=== PATIENT | female | born 1955 | race Caucasian/White ===

== ENCOUNTER 2017-03-02 21:57 | Inpatient (IN) | payer BC, MEDICAID, OTHER, SELFPAY ==
[~2017-03-02] VITALS: Ht 160 cm; Wt 96.7 kg
[2017-03-02 22:59] LABS: ASPARTATE AMINO TRANSFERASE 23 U/L (15-37); BLOOD UREA NITROGEN 19 mg/dL (7-18)
[2017-03-02 23:04] LABS: IS PT STATUS REG ER OR PRE ER? YES
[2017-03-02] MEDS ORDERED: GLIM2TAB2 PO (23:16)
[2017-03-02] MEDS ORDERED: LOSA100T6 PO (23:16)
[2017-03-02] MEDS ORDERED: SAXA5TAB PO (23:16)
[2017-03-02] MEDS ORDERED: CARV-39 PO (23:16)
[2017-03-02] MEDS ORDERED: ASPI-496 PO (23:16)
[2017-03-02] MEDS ORDERED: CHOL10002 PO (23:16)
[2017-03-02] MEDS ORDERED: DEXL60CA PO (23:16)
[2017-03-02] MEDS ORDERED: METF500T4 PO (23:16)
[2017-03-03] MEDS ORDERED: SODIUM CHLORIDE 0.9% 1,000 ML IV ONE (00:18)
[2017-03-03] MEDS ORDERED: ONDANSETRON 2MG/ML, 2ML IVPush PRN (00:30)
[2017-03-03 02:00] VITALS: BP 130/82
[2017-03-03] MEDS: ENOXAPARIN 40 MG/0.4 ML SQ SCH (04:00)
[2017-03-03] MEDS ORDERED: LORazepam 1MG TABLET PO ONE (04:00)
[2017-03-03] MEDS ORDERED: MELATONIN 3 MG TABLET PO PRN (04:00)
[2017-03-03 07:33] VITALS: BP 180/113
[2017-03-03] MEDS: LOSARTAN 50MG TABLET PO SCH (08:52)
[2017-03-03] MEDS: CARVEDILOL 25 MG TABLET PO SCH ×2 (08:53→20:01)
[2017-03-03] MEDS: GLIMEPIRIDE 1 MG TABLET PO SCH (08:53)
[2017-03-03] MEDS: CHOLECALCIFEROL 1,000 UNIT TABLET PO SCH ×3 (08:53→20:01)
[2017-03-03] MEDS: ASPIRIN 81 MG TABLET EC PO SCH (08:53)
[2017-03-03 13:05] VITALS: BP 154/55
[2017-03-03] MEDS ORDERED: GADOBUTROL 7.5 MMOL/7.5 ML PFS ONE (13:51)
[2017-03-03 19:59] VITALS: BP 174/84
[2017-03-03] MEDS ORDERED: ATORVASTATIN 40 MG TABLET PO SCH (21:00)
[2017-03-03 21:19] VITALS: BP 162/83
[2017-03-04 03:03] VITALS: BP 128/74
[2017-03-04] MEDS: ENOXAPARIN 40 MG/0.4 ML SQ SCH (04:00)
[2017-03-04 05:33] LABS: BLOOD UREA NITROGEN 20 mg/dL (7-18)
[2017-03-04 07:41] VITALS: BP 120/62
[2017-03-04] MEDS: LOSARTAN 50MG TABLET PO SCH (09:00)
[2017-03-04] MEDS: ASPIRIN 81 MG TABLET EC PO SCH (09:00)
[2017-03-04] MEDS: CHOLECALCIFEROL 1,000 UNIT TABLET PO SCH (09:00)
[2017-03-04] MEDS: CARVEDILOL 25 MG TABLET PO SCH (09:00)
[2017-03-04] MEDS: GLIMEPIRIDE 1 MG TABLET PO SCH (09:00)
[2017-03-04] MEDS ORDERED: ATOR40TA78 PO (10:10)
== END 2017-03-04 13:30 | disposition home or self-care (01) | DRG 69 ==
LOC: ED 23:59 → EDIP 03-03 00:18 → INTOOBSV 03-03 00:18 → 4EST 03-03 01:23 → OBSVTOIN 03-03 14:00 → 4EST 03-03 19:31 → DCLOUNGE 03-04 12:35
PROVIDERS: ADMIT Internal Medicine; ATTEND Internal Medicine
DX: G45.9 Transient cerebral ischemic attack, unspecified (principal); I10 Essential (primary) hypertension; K21.9 Gastro-esophageal reflux disease without esophagitis; K76.0 Fatty (change of) liver, not elsewhere classified; E66.9 Obesity, unspecified; G47.00 Insomnia, unspecified; E11.9 Type 2 diabetes mellitus without complications; G43.909 Migraine, unspecified, not intractable, without status migrainosus; Z87.442 Personal history of urinary calculi; Z83.3 Family history of diabetes mellitus; Z68.37 Body mass index [BMI] 37.0-37.9, adult; Z79.84 Long term (current) use of oral hypoglycemic drugs
CPT/HCPCS: 36415; 70450; 70553; 71010; 80048; 80053; 80061; 82962; 84443; 84484; 85025; 85610; 85730; 93005; 93306; 93880; A9585; G0378; J7030

== ENCOUNTER 2017-05-06 04:40 | Emergency (ER) | payer OTHER ==
[~2017-05-06] VITALS: Ht 160 cm; Wt 92.7 kg
[~2017-05-06 04:40] MED LIST: ASPI-496 PO; ATOR40TA78 PO; CARV-39 PO; CHOL10002 PO; DEXL60CA2 PO; GLIM2TAB2 PO; LOSA100T6 PO; METF500T4 PO; SAXA5TAB PO
[2017-05-06] MEDS ORDERED: SODIUM CHLORIDE FLUSH 10ML SYR IVF ONE (05:00)
[2017-05-06] MEDS ORDERED: ONDANSETRON 2MG/ML, 2ML IVPush ONE ×2 (05:00→07:30)
[2017-05-06] MEDS ORDERED: MORPHINE SULFATE 4 MG/ML, 1ML ONE ×2 (05:10→06:39)
[2017-05-06] MEDS ORDERED: ONDANSETRON 2MG/ML, 2ML ONE ×2 (05:10→07:29)
[2017-05-06 05:45] LABS: HEMATOCRIT 38.2 % (34.6-47.8); HEMOGLOBIN 12.8 g/dL (11.7-16.4); WHITE BLOOD COUNT 12.4 x10^3/uL (3.4-10)
[2017-05-06] MEDS: MORPHINE SULFATE 4 MG/ML, 1ML IVPush PRN ×2 (05:49→06:50)
[2017-05-06 05:54] LABS: ASPARTATE AMINO TRANSFERASE 22 U/L (15-37); BLOOD UREA NITROGEN 20 mg/dL (7-18)
[2017-05-06] MEDS ORDERED: SODIUM CHLORIDE 0.9% 1,000ML IVBOLUS ONE (07:00)
[2017-05-06] MEDS ORDERED: HYDROmorphone 1 MG/ML, 1ML ONE ×2 (07:27→09:22)
[2017-05-06] MEDS: HYDROmorphone 1 MG/ML, 1ML IVPush PRN ×2 (07:33→09:24)
[2017-05-06] MEDS ORDERED: PROMETHAZINE 25 MG/ML, 1ML ONE (08:28)
[2017-05-06] MEDS ORDERED: PROMETHAZINE 25 MG/ML, 1ML IM ONE (08:30)
[2017-05-06 09:15] VITALS: BP 178/98
== END 2017-05-06 10:38 | disposition home or self-care (01) ==
LOC: ED 04:51
DX: N13.2 Hydronephrosis with renal and ureteral calculous obstruction (principal); I10 Essential (primary) hypertension; E11.9 Type 2 diabetes mellitus without complications; Z86.73 Personal history of transient ischemic attack (TIA), and cerebral infarction without residual deficits; Z90.49 Acquired absence of other specified parts of digestive tract; Z87.442 Personal history of urinary calculi
CPT/HCPCS: 36415; 74000; 74176; 76770; 80053; 81001; 82962; 83605; 85025; 85610; 96361; 96372; 96374; 96375; 96376; 99285; J1170; J2405; J2550; J7030

== ENCOUNTER → 2020-06-07 | Outpatient (CLI) | payer MEDICARE, OTHER ==
[~2020-06-07] MED LIST changes: -GLIM2TAB2 PO; +GLIM2TAB7 PO; +LOSA100T14 PO; -LOSA100T6 PO; +MAGN400T9 PO; +MELA1TAB8 PO; +METF500T17 PO; -METF500T4 PO; +MILK500C PO; +ROSU5TAB PO; +SITA100T PO; +TRIA1TAB3 PO; +UBID100C41 PO
== END | disposition home or self-care (01) ==
LOC: STAR 10:19
PROVIDERS: ATTEND Urology
DX: Z01.818 Encounter for other preprocedural examination (principal); N20.0 Calculus of kidney; Z20.828 Contact with and (suspected) exposure to other viral communicable diseases
CPT/HCPCS: 36415; 87635; 93005